=== PATIENT | female | born 1945 | race African-American/Black ===

== ENCOUNTER 2018-07-02 09:44 | Emergency (ER) | payer MEDICARE, MEDICAID ==
[~2018-07-02] VITALS: Ht 172.7 cm; Wt 156.0 kg
[2018-07-02] MEDS ORDERED: SODIUM CHLORIDE 0.9% 1,000 ML IV ONE ×2 (11:48→12:00)
[2018-07-02 12:28] LABS: BASOPHILS % 0.5 % (0.0-2.0); EOSINOPHILS % 4.2 % (0.0-5.0); HEMATOCRIT. 31.3 % (36.0-48.0); HEMOGLOBIN. 10.2 g/dL (12.0-16.0); LYMPHOCYTES % 31.5 % (20.0-50.0); MEAN CORPUSCULAR HEMOGLOBIN 28.6 pg (28.0-32.0); MEAN CORPUSCULAR VOLUME 88.1 fL (81.0-99.0); MEAN PLATELET VOLUME 8.9 fl (7.4-10.4); MONOCYTES % 9.5 % (2.0-8.0); NEUTROPHILS % 54.3 % (40.0-76.0); PLATELET 208 x1000/uL (130-400); RED BLOOD CELL COUNT 3.55 mill/uL (4.2-5.4); RED CELL DISTRIBUTION WIDTH 13.9 % (11.6-14.6)
[2018-07-02 12:30] LABS: CHLORIDE 108 mEq/L (98-107)
[2018-07-02] MEDS ORDERED: KETOROLAC 15MG/ML VIAL IV NR (12:30)
[2018-07-02 19:18] LABS: CLARITY URINE CLEAR (CLEAR); COLOR URINE YELLOW (YELLOW); KETONES URINE NEGATIVE (NEGATIVE); LEUKOCYTE ESTERASE URINE NEGATIVE (NEGATIVE); NITRITE URINE NEGATIVE (NEGATIVE); OCCULT BLOOD URINE NEGATIVE (NEGATIVE); PROTEIN URINE NEGATIVE (NEGATIVE); SPECIFIC GRAVITY URINE 1.017 (1.005-1.030); UROBILINOGEN URINE 0.2 E.U./dL (0.2-1.0)
[2018-07-02 20:45] VITALS: BP 172/65
== END 2018-07-02 21:19 | disposition home or self-care (01) ==
LOC: ER 09:44 → CANBEDREQ 21:43
DX: J06.9 Acute upper respiratory infection, unspecified (principal); D64.9 Anemia, unspecified; E86.0 Dehydration; E88.09 Other disorders of plasma-protein metabolism, not elsewhere classified; R30.0 Dysuria
CPT/HCPCS: 36415; 71045; 80053; 81003; 84145; 85025; 87086; 87804; 93005; 96361; 96374; 99284; J1885; J7030

== ENCOUNTER 2018-11-14 12:03 | Inpatient (IN) | payer MEDICARE, MEDICAID ==
[~2018-11-14] VITALS: Ht 165.1 cm; Wt 133.8 kg
[2018-11-14 12:52] LABS: BASOPHILS % 0.6 % (0.0-2.0); EOSINOPHILS % 0.6 % (0.0-5.0); HEMOGLOBIN. 11.2 g/dL (12.0-16.0); LYMPHOCYTES % 12.8 % (20.0-50.0); MEAN CORPUSCULAR HEMOGLOBIN 28.7 pg (28.0-32.0); MEAN CORPUSCULAR VOLUME 86.9 fL (81.0-99.0); MEAN PLATELET VOLUME 9.4 fl (7.4-10.4); MONOCYTES % 6.9 % (2.0-8.0); NEUTROPHILS % 79.1 % (40.0-76.0); PLATELET 196 x1000/uL (130-400); RED BLOOD CELL COUNT 3.91 mill/uL (4.2-5.4); RED CELL DISTRIBUTION WIDTH 14.7 % (11.6-14.6)
[2018-11-14 13:00] LABS: CHLORIDE 108 mEq/L (98-107)
[2018-11-14 17:38] VITALS: BP 140/75
[2018-11-14 18:10] VITALS: BP 140/75
[2018-11-14 20:00] VITALS: BP 142/69
[2018-11-14] MEDS ORDERED: FAMO20TA8 PO (20:22)
[2018-11-14] MEDS ORDERED: METO25TA6 PO (20:22)
[2018-11-14] MEDS ORDERED: FURO40TA5 PO (20:22)
[2018-11-14] MEDS ORDERED: PANT40TA4 PO (20:22)
[2018-11-14] MEDS ORDERED: GABA-529 PO (20:22)
[2018-11-14] MEDS ORDERED: SIMV20TA6 PO (20:22)
[2018-11-14] MEDS ORDERED: LOSA100T32 PO (20:22)
[2018-11-14] MEDS ORDERED: ENOXAPARIN 40MG/0.4ML SYR SUBCUT SCH (21:15)
[2018-11-14] MEDS ORDERED: CLONIDINE 0.1MG TABLET PO PRN (21:15)
[2018-11-14] MEDS ORDERED: ACETAMINOPHEN 325MG TABLET PO PRN (21:15)
[2018-11-14] MEDS ORDERED: ONDANSETRON HCL 4MG/2ML INJ IV PRN (21:15)
[2018-11-14] MEDS ORDERED: MAGNESIUM/ALUMINUM HYDROXIDE/SIMETHICONE 30ML UDC PO PRN (21:15)
[2018-11-14] MEDS ORDERED: GUAIFENESIN 200MG/10ML SUGAR FREE UDC PO PRN (21:15)
[2018-11-14] MEDS ORDERED: MAGNESIUM HYDROXIDE 400MG/5ML 30ML UDC PO PRN (21:15)
[2018-11-14] MEDS ORDERED: TRAMADOL 50MG TABLET PO PRN (21:15)
[2018-11-14] MEDS ORDERED: TEMAZEPAM 15MG CAPSULE PO PRN (21:15)
[2018-11-14] MEDS ORDERED: DIPHENHYDRAMINE 50MG/ML VIAL IV PRN (21:15)
[2018-11-14] MEDS: METOPROLOL TARTRATE 25MG TABLET PO SCH (21:48)
[2018-11-14] MEDS: GABAPENTIN 100MG CAPSULE PO SCH (21:48)
[2018-11-14] MEDS: ATORVASTATIN CALCIUM 20MG TABLET PO SCH (21:48)
[2018-11-14] MEDS: DEXT 5%/0.45% NACL 1000ML 1,000 ML IV SCH (22:33)
[2018-11-15] VITALS: BP 135/56
[2018-11-15 00:52] LABS: CLARITY URINE CLEAR (CLEAR); COLOR URINE YELLOW (YELLOW); KETONES URINE NEGATIVE (NEGATIVE); LEUKOCYTE ESTERASE URINE NEGATIVE (NEGATIVE); NITRITE URINE NEGATIVE (NEGATIVE); OCCULT BLOOD URINE NEGATIVE (NEGATIVE); PROTEIN URINE NEGATIVE (NEGATIVE); SPECIFIC GRAVITY URINE 1.016 (1.005-1.030); UROBILINOGEN URINE 0.2 E.U./dL (0.2-1.0)
[2018-11-15 04:00] VITALS: BP 126/60
[2018-11-15] MEDS: DEXT 5%/0.45% NACL 1000ML 1,000 ML IV SCH ×2 (06:00→17:01)
[2018-11-15] MEDS: PANTOPRAZOLE 40MG DR TABLET PO SCH ×2 (07:46→20:37)
[2018-11-15 08:14] VITALS: BP 121/56
[2018-11-15 08:54] LABS: BASOPHILS % 0.4 % (0.0-2.0); EOSINOPHILS % 2.2 % (0.0-5.0); HEMATOCRIT. 29.7 % (36.0-48.0); HEMOGLOBIN. 9.9 g/dL (12.0-16.0); LYMPHOCYTES % 23.4 % (20.0-50.0); MEAN CORPUSCULAR HEMOGLOBIN 29.1 pg (28.0-32.0); MEAN CORPUSCULAR VOLUME 87.6 fL (81.0-99.0); MEAN PLATELET VOLUME 9.3 fl (7.4-10.4); MONOCYTES % 11.1 % (2.0-8.0); NEUTROPHILS % 62.9 % (40.0-76.0); PLATELET 160 x1000/uL (130-400); RED BLOOD CELL COUNT 3.39 mill/uL (4.2-5.4); RED CELL DISTRIBUTION WIDTH 14.4 % (11.6-14.6)
[2018-11-15] MEDS ORDERED: ENOXAPARIN 40MG/0.4ML SYR SUBCUT SCH (09:00)
[2018-11-15 09:07] LABS: CHLORIDE 113 mEq/L (98-107)
[2018-11-15] MEDS: GABAPENTIN 100MG CAPSULE PO SCH ×2 (09:43→20:36)
[2018-11-15] MEDS: LOSARTAN POTASSIUM 50 MG TABLET PO SCH (09:43)
[2018-11-15] MEDS: METOPROLOL TARTRATE 25MG TABLET PO SCH ×2 (09:43→20:36)
[2018-11-15 12:58] VITALS: BP 90/39
[2018-11-15 16:52] VITALS: BP 122/58
[2018-11-15 20:00] VITALS: BP 146/52
[2018-11-15] MEDS: ATORVASTATIN CALCIUM 20MG TABLET PO SCH (20:36)
[2018-11-15] MEDS: ENOXAPARIN 30MG/0.3ML SYR SUBCUT SCH (20:37)
[2018-11-16] VITALS: BP 131/53
[2018-11-16 04:00] VITALS: BP 131/69
[2018-11-16] MEDS: DEXT 5%/0.45% NACL 1000ML 1,000 ML IV SCH (05:09)
[2018-11-16 08:00] VITALS: BP 124/61
[2018-11-16] MEDS: LOSARTAN POTASSIUM 50 MG TABLET PO SCH (09:16)
[2018-11-16] MEDS: METOPROLOL TARTRATE 25MG TABLET PO SCH (09:16)
[2018-11-16] MEDS: PANTOPRAZOLE 40MG DR TABLET PO SCH (09:16)
[2018-11-16] MEDS: GABAPENTIN 100MG CAPSULE PO SCH (09:16)
[2018-11-16] MEDS: ENOXAPARIN 30MG/0.3ML SYR SUBCUT SCH (09:17)
[2018-11-16 12:08] VITALS: BP 107/45
[2018-11-16 15:48] VITALS: BP 117/53
[2018-11-16 16:27] LABS: HEMATOCRIT 31.5 % (36.0-48.0); HEMOGLOBIN 10.2 g/dL (12.0-16.0); MEAN CORPUSCULAR HEMOGLOBIN 28.5 pg (28.0-32.0); MEAN CORPUSCULAR VOLUME 88.1 fL (81.0-99.0); PLATELET 177 x1000/uL (130-400); RED BLOOD CELL COUNT 3.58 mill/uL (4.2-5.4); RED CELL DISTRIBUTION WIDTH 14.6 % (11.6-14.6)
[2018-11-16 16:51] VITALS: BP 117/53
== END 2018-11-16 23:32 | disposition home health service (06) | DRG 683 ==
LOC: ER 12:57 → 7WST 14:17 → EDBEDREQ 14:19 → ENRESERV 16:42
PROVIDERS: ADMIT Internal Medicine; ATTEND Internal Medicine
DX: N17.9 Acute kidney failure, unspecified (principal); I13.0 Hypertensive heart and chronic kidney disease with heart failure and stage 1 through stage 4 chronic kidney disease, or unspecified chronic kidney disease; Z68.42 Body mass index [BMI] 45.0-49.9, adult; N18.9 Chronic kidney disease, unspecified; K21.9 Gastro-esophageal reflux disease without esophagitis; E66.9 Obesity, unspecified; I50.9 Heart failure, unspecified; M16.10 Unilateral primary osteoarthritis, unspecified hip; D64.9 Anemia, unspecified; E78.00 Pure hypercholesterolemia, unspecified; E78.5 Hyperlipidemia, unspecified; E86.0 Dehydration; W18.39XA Other fall on same level, initial encounter; Z79.899 Other long term (current) drug therapy; Z82.49 Family history of ischemic heart disease and other diseases of the circulatory system; Z83.3 Family history of diabetes mellitus; Y93.89 Activity, other specified; Y92.89 Other specified places as the place of occurrence of the external cause; Y99.8 Other external cause status; Z88.6 Allergy status to analgesic agent; Z91.041 Radiographic dye allergy status
CPT/HCPCS: 36415; 71045; 72170; 76770; 80048; 83880; 84484; 85027; 93005; 93970; 96374; 97162; 99285; J1200; J1650; A4315

== ENCOUNTER 2018-12-11 00:35 | Emergency (ER) | payer MEDICARE, MEDICAID ==
[~2018-12-11] VITALS: Ht 175.3 cm; Wt 148.0 kg
[~2018-12-11 00:35] MED LIST: FAMO20TA8 PO; GABA-529 PO; LOSA100T32 PO; METO25TA6 PO; PANT40TA4 PO; SIMV20TA6 PO
[2018-12-11] MEDS: HYDROCODONE/ACETAMINOPHEN 5/325MG TABLET PO ONE (01:15)
[2018-12-11 06:25] VITALS: BP 151/61
== END 2018-12-11 06:28 | disposition home or self-care (01) ==
LOC: ER 00:35
DX: G89.29 Other chronic pain (principal); M54.5 Low back pain; I11.0 Hypertensive heart disease with heart failure; I50.9 Heart failure, unspecified; Z79.899 Other long term (current) drug therapy; Z88.6 Allergy status to analgesic agent; Z91.041 Radiographic dye allergy status
CPT/HCPCS: 99283